=== PATIENT | male | born 1945 | race Caucasian/White ===

== ENCOUNTER 2017-07-31 14:25 | Outpatient (CLI) | payer BC ==
--- NOTE | 2017-07-31 16:20 | MRI ---
MR OF THE CERVICAL SPINE WITHOUT CONTRAST: 07/31/17 INDICATION: 72-year-old male with cervical radiculopathy. The patient is having neck pain with left arm numbness for several years. TECHNIQUE: Multiplanar and multisequence MR images were obtained of the cervical spine without contrast. FINDINGS: Visualized aspects of the posterior fossa and craniocervical junction appear within normal limits. The visualized prevertebral soft tissues are unremarkable appearing. At C2-C3, there is a small central projection. There is facet hypertrophy. There is mild bilateral ne ural foraminal narrowing. C3-4, there is facet hypertrophy with uncovertebral hypertrophy inducing mild bilateral neural forami nal narrowing. At C4-5, there is a broad based disc bulge with a superimposed right central to right foraminal disc protrusion, causing severe narrowing of the right neural foraminal with probable impingement of the e xiting nerve root. There is also uncovertebral hypertrophy at this level with facet hypertrophy induc ing moderate to severe Left and right neural foraminal narrowing. At C5-6, there is a broad based bulge with facet hypertrophy inducing bilateral severe neural foramin al narrowing with mild to moderate central canal narrowing. At C6-7, there is a broad based bulge and uncovertebral hypertrophy inducing mild to moderate and sev ere right neural foraminal narrowing. There is mild central canal narrowing this level. At C7-T1, there is no appreciable central canal or neural foraminal narrowing. IMPRESSION: Moderate multilevel spondylosis cervical spine most pronounced at C4-5 through C6-7 as detailed above . POS: [facility]
== END 2017-07-31 14:26 | disposition home or self-care (01) ==
LOC: TBSIIMAG 14:25
PROVIDERS: ATTEND Neurological Surgery
DX: M47.22 Other spondylosis with radiculopathy, cervical region (principal)
CPT/HCPCS: 72141

== ENCOUNTER 2018-02-05 08:28 | Outpatient (CLI) | payer MEDICARE, BC ==
--- NOTE | 2018-02-05 11:01 | CT ---
CT OF ABDOMEN AND PELVIS PERFORMED WITH CONTRAST ENHANCEMENT: History: Chronic left lower quadrant abdomen pain. Comparison: Testicular ultrasound, 06-21-10. FINDINGS: The lung bases are clear. The liver, spleen, pancreas, and gallbladder regions all appear unremarkable. Right and left adrenal glands are normal in size and appearance. Hypodensities involve both kidneys, compatible with cysts. No obstruction. There is no significant periaortic or mesenteric lymphadenopat hy. CT OF PELVIS PERFORMED WITH CONTRAST ENHANCEMENT: There is some sigmoid diverticulosis noted without any definite signs for diverticulitis. The appendi x is normal. There is no significant pelvic lymphadenopathy. Slightly asymmetric appearance to the se javid vesicles. The right seminal vesicle is larger than the left. There is a bilobed testicular mass . The right side of this lesion has more cystic numbers with CT Hounsfield unit numbers in the 2 rang e. This portion measures 3.7 cm. Just to the left of this there is a second lesion which does not hav e definite cystic numbers. It measures approximately 4.1 cm in diameter. It could represent a complex cystic collection. It extends into the left inguinal canal. I am not certain if these are two separa te masses or part of the same mass. They appear to be separate from the testicle. There has been comp eliot cystic collections described on previous ultrasound which did not describe any suspicious solid m ass. Review of osseous structures show arthritic change of the spine. IMPRESSION: 1. Sigmoid diverticulosis. 2. Bilateral renal cysts. 3. Scrotal masses as described above, probably stable as compared to previous testicular ultrasound. POS: [facility]
[2018-02-05] MEDS ORDERED: Iopamidol 370 76% 100 ML VIAL ONE (15:57)
== END 2018-02-05 08:29 | disposition home or self-care (01) ==
LOC: SCSCT 08:28
PROVIDERS: ATTEND Internal Medicine Gastroenterology
DX: K21.9 Gastro-esophageal reflux disease without esophagitis (principal); R10.30 Lower abdominal pain, unspecified; K57.30 Diverticulosis of large intestine without perforation or abscess without bleeding; N28.1 Cyst of kidney, acquired; N50.89 Other specified disorders of the male genital organs
CPT/HCPCS: 74177; 82565